=== PATIENT | male | born 1965 | race Caucasian/White ===

== ENCOUNTER 2016-07-14 12:19 | Emergency (ER) | payer OTHER ==
[2016-07-14 13:06] LABS: BILIRUBIN NEGATIVE (NEGATIVE); CLARITY CLEAR (CLEAR); COLOR YELLOW (YELLOW); GLUCOSE (U) NORMAL (NORMAL); KETONE (U) NEGATIVE (NEGATIVE); LEUKOCYTES NEGATIVE Leu/uL (NEGATIVE); NITRITE NEGATIVE (NEGATIVE); PROTEIN NEGATIVE (NEGATIVE); UROBILINOGEN 0.2 mg/dL (0.2-1.0); pH 6.5 (5.0-9.0)
[2016-07-14 13:08] LABS: BLOOD NEGATIVE Ery/uL (NEGATIVE)
== END 2016-07-14 14:17 | disposition left against medical advice (07) ==
LOC: FER 12:19
PROVIDERS: Internal Medicine
DX: A64 Unspecified sexually transmitted disease (principal); I10 Essential (primary) hypertension; Z20.2 Contact with and (suspected) exposure to infections with a predominantly sexual mode of transmission
CPT/HCPCS: 81003; 99283